=== PATIENT | female | born 1980 | race Caucasian/White ===

== ENCOUNTER 2021-09-15 13:07 | Emergency (ER) | payer OTHER, SELFPAY ==
[2021-09-15 13:14] VITALS: BP 128/89; PULSE 98; RESP 16; TEMP 36.6; O2SAT 100
--- NOTE | 2021-09-15 13:18 | ED.URI ---
HPI - URI/Sore Throat General Chief Complaint: Upper Respiratory Infection Stated Complaint: head lora,headache,ears hurts,cough Source: patient and RN notes reviewed Mode of arrival: ambulatory Limitations: no limitations History of Present Illness HPI Narrative: He is a 41-year-old female patient who ambulated into the [facility]. Patient states that on evening she started feeling bad. On Thursday she had severe nasal congestion, headache, low-grade fever and cough. Patient states that she has used Mucinex, ibuprofen Aleve and [place] cold. Patient had a Covid test at [facility] earlier today. Patient states she had exposure to influenza. MD elicited complaint: fever and nasal congestion Related Data Home Medications Medication Instructions Recorded Confirmed copper [ParaGard T 380A] 1 device INTRAUTERINE ONCE 09/15/21 09/15/21 Allergies Allergy/AdvReac Type Severity Reaction Status Date / Time latex Allergy Unknown Rash Verified 09/15/21 13:27 sulfamethoxazole AdvReac Mild YEAST Verified 08/30/17 15:57 INFECTIONS trimethoprim AdvReac Mild YEAST Verified 08/30/17 15:57 INFECTIONS Review of Systems Review of Systems: CONSTITUTIONAL: + body aches,+ fever, denies chills, or sweats. EYES: Denies visual changes, redness, or discharge. ENT: +rhinorrhea,+ congestion, +sore throat, or otalgia. CARDIOVASCULAR: Denies chest pain, palpitations, or edema. RESPIRATORY: + cough or dyspnea. GASTROINTESTINAL: Denies abdominal pain, nausea, vomiting, or diarrhea. GENITOURINARY: Denies dysuria or hematuria. SKIN: Denies rash, itching, or wounds. MUSCULOSKELETAL: Denies back pain, joint pain, or myalgia. NEUROLOGIC: Denies headache, numbness, tingling, or weakness. PSYCH: Denies depression or anxiety. All systems reviewed & are unremarkable except as noted in HPI and below PMFSH Comments At time of signature, I have reviewed and agree with nursing past medical, surgical, social and family history unless otherwise noted. Please see nursing chart for further information. There is no relevant family history pertinent to the presenting complaint Exam Narrative: GENERAL: Well-appearing, well-nourished, and in no acute distress. HEAD: Normocephalic, atraumatic. EYES: EOMI. No redness or drainage. Conjunctivae normal. ENT: Mucous membranes pink and moist. Nasal membranes erythematous with clear rhinorrhea. Tympanic membranes are dull bilaterally with moderate amount of fluid. Posterior oropharynx is erythemic with moderate amount of clear drainage, no exudate. Uvula midline. NECK: Normal AROM. Supple. left anterior cervical lymphadenopathy. CHEST: No respiratory distress. Clear to auscultation. MUSCULOSKELETAL: No bony tenderness. EXTREMITIES: Normal range of motion. No edema. SKIN: Warm, dry, no rash. Capillary refill normal. Normal skin turgor. NEURO: No focal deficits. Alert and oriented x3. Gait steady. PSYCH: Normal affect. No signs of depression or anxiety. Course Vital Signs Vital signs: Reviewed MDM - URI/Sore Throat MDM Narrative Medical decision making narrative: Patient's rapid Covid test is positive. Differential Diagnosis Differential diagnosis: Likely upper respiratory infection, otitis media, sinusitis, viral infection and other (covid 19) Medical Records Attestation: I reviewed the patient's medical records. Lab Data Attestation: I reviewed the patient's lab results. Critical Care Time Critical Care Time Critical Care Time: No Discharge Plan Discharge Clinical Impression: COVID Patient Disposition: Home, Self-Care Condition: Stable Instructions: Antibiotic Form, COVID-19 (Coronavirus Disease 2019) (ED) Additional Instructions: Increase fluids. COVID-19 DISCHARGE The following recommendations have been made by the CDC and local Health Departments, regarding COVID-19: Those individuals with mild cases of COVID-19 can generally be discontinued from iso
== END 2021-09-15 13:36 | disposition home or self-care (01) ==
PROVIDERS: Emergency Provider Nurse Practitioner Family; PCP Physician Assistant
DX: U07.1 COVID-19 (principal)
CPT/HCPCS: 87426; 87804; 99213; C9803; G0463

== ENCOUNTER 2022-02-11 15:17 | Outpatient (CLI) | payer OTHER, SELFPAY ==
--- NOTE | ~2022-02-11 | XR_ITS ---
EXAMINATION: XR chest 2V EXAM DATE: 02/11/2022 15:38 INDICATION: Pleurodynia,Cough,Rt Chest Heaviness Into Lt X4days TECHNIQUE: Frontal and lateral projections of the chest obtained and reviewed. There is no prior stud y for comparison. FINDINGS: The lungs are clear. There are no pleural effusions. The cardiomediastinal silhouette is within normal limits. There is no pneumothorax suspected. The bones and soft tissues are unremarkab le. IMPRESSION: No acute cardiopulmonary findings. Reviewed, dictated and finalized at location B.
== END 2022-02-11 15:18 | disposition home or self-care (01) ==
LOC: ANHIMG 15:22
PROVIDERS: PCP Physician Assistant; Visit Provider Physician Assistant
DX: R07.81 Pleurodynia (principal)
CPT/HCPCS: 71046

== ENCOUNTER 2022-04-05 08:27 | Emergency (ER) | payer OTHER, SELFPAY ==
[2022-04-05 08:30] VITALS: BP 117/80; PULSE 77; RESP 14; TEMP 36.8; O2SAT 100
--- NOTE | 2022-04-05 08:48 | ED.URI ---
HPI - URI/Sore Throat General Chief Complaint: Upper Respiratory Infection Stated Complaint: Sore Throat Time Seen by Provider: 04/05/22 08:48 Source: patient, RN notes reviewed and old records reviewed Mode of arrival: ambulatory Limitations: no limitations History of Present Illness HPI Narrative: 42-year-old female who presents to [facility] with complaints of fever,chills and sweats, and body aches with thick nasal drainage which is yellow and sore throat with cough and frontal headaches since . 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 Patient states she saw her doctor for just a routine visit few weeks ago and has history of seasonal allergies and has been taking Singulair and Loli for her symptoms along with Flonase nasal spray. Patient reports she has been taking also some Mucinex cold and flu and some Tylenol or ibuprofen for her sore throat symptoms. Patient reports she took a home COVID test which was negative yesterday, is vaccinated and boosted for COVID and had COVID August 2021. MD elicited complaint: cough, sore throat, rhinorrhea and nasal congestion Pertinent past history: seasonal allergies Onset (ago): day(s) Consistency: progressively worsening Severity: moderate Pain scale (0-10): 6 Description of mucous: yellow Able to tolerate fluids by mouth: Yes Exacerbating factors: swallowing Context: sick contacts Treatments prior to arrival: acetaminophen, ibuprofen, cold medicine and other (allergy meds) Related Data Home Medications Medication Instructions Recorded Confirmed copper [ParaGard T 380A] 1 device INTRAUTERINE ONCE 09/15/21 09/15/21 Allergies Allergy/AdvReac Type Severity Reaction Status Date / Time latex Allergy Unknown Rash Verified 04/05/22 08:40 sulfamethoxazole AdvReac Mild YEAST Verified 04/05/22 08:40 INFECTIONS trimethoprim AdvReac Mild YEAST Verified 04/05/22 08:40 INFECTIONS Review of Systems Review of Systems: CONSTITUTIONAL: Positive for fever, chills, or sweats. EYES: Denies visual changes, redness, or discharge. ENT: Positive for rhinorrhea, congestion, sore throat, no otalgia. CARDIOVASCULAR: Denies chest pain, palpitations, or edema. RESPIRATORY: Positive for cough denies dyspnea. GASTROINTESTINAL: Denies abdominal pain, nausea, vomiting, or diarrhea. GENITOURINARY: Denies dysuria or hematuria. SKIN: Denies rash or itching. MUSCULOSKELETAL: Denies back pain, joint pain, some body aches NEUROLOGIC: Positive headache, numbness, or weakness. PSYCHIATRIC: Denies anxiety or depression. All systems reviewed & are unremarkable except as noted in HPI and below PMFSH Past Medical History Medical History (Updated 04/05/22 @ 09:29 by Sharifa Marrero NP) Bronchitis Kidney infection Family History Family History (Updated 04/05/22 @ 09:29 by Sharifa Marrero NP) Father Heart disease Hypertension Mother Hypertension Social History Social History (Updated 04/05/22 @ 09:30 by Sharifa Marrero NP) Smoking status: Never smoker Alcohol intake: current Alcohol use details: social Substance use type: does not use Living arrangements: with family Gender identity (if verbalized by the patient): Female Comments At time of signature, agree with nursing past medical, surgical, social and family history. There is no relevant family history pertinent to the presenting complaint Exam Narrative: GENERAL: Well-appearing, well-nourished, and in no acute distress. HEAD: Normocephalic, atraumatic. EYES: PERRLA and EOMI. ENT: Nares with red membranes yellow tinged rhinorrhea no epistaxis. Mucous membranes moist.TM's normal with good light reflex, throat red with white lesions to tonsils with some tonsil enlargement NECK: Supple no lymphadenopathy CHEST: Clear to auscultation. No respiratory dist
== END 2022-04-05 09:23 | disposition home or self-care (01) ==
PROVIDERS: Emergency Provider Registered Nurse; PCP Physician Assistant
DX: J03.90 Acute tonsillitis, unspecified (principal); J06.9 Acute upper respiratory infection, unspecified; Z86.16 Personal history of COVID-19
CPT/HCPCS: 87081; 87804; 87880; 99213; G0463

== ENCOUNTER 2023-12-13 12:56 | Emergency (ER) | payer OTHER, SELFPAY ==
--- NOTE | ~2023-12-13 | XR_ITS ---
EXAM: XR shoulder LT min 2V, XR elbow LT min 3V, XR humerus LT DATE: 12/13/2023 14:15 (accession [id number]), 12/13/2023 14:16 (accession [id number]), 12/13 14:14 (accession [id number]) HISTORY: fall, generalized ache/stiffness throughout shoulder . COMPARISON: None. FINDINGS: Normal mineralization. No fracture or dislocation. No lytic or blastic lesion. Joint space s are maintained. No erosion or periosteal change. Soft tissues within normal limits. IMPRESSION: No acute osseous finding in the left shoulder, humerus, or elbow. Reviewed, dictated and finalized at location K. IFIED [employer] AND DR[employer] COUNSELOR IMPRESSION: No acute osseous finding in the left shoulder, humerus, or elbow. IMPRESSION: No acute osseous finding in the left shoulder, humerus, or elbow.
--- NOTE | ~2023-12-13 | XR_ITS ---
EXAMINATION: [id number] Exam Date/Time: 12/13/2023 13:50 HAND LOOM WEAVER HISTORY: fall, generalized pain throughout left ribs no cardiac hx Comparison: 02/11/2022. RESULT: Lines, tubes, and devices: None. Lungs and pleura: Clear. Cardiomediastinal silhouette: Stable. Other: No acute osseous or upper abdominal finding. IMPRESSION: No acute cardiopulmonary process. No acute osseous finding in the left ribs. Reviewed, dictated and finalized at location K. LOOM WEAVER
--- NOTE | ~2023-12-13 | CT_ITS ---
EXAMINATION: CT cervical spine wo con DATE: 12/13/2023 14:17 INDICATION: fall, left sided neck pain radiates down left arm TECHNIQUE: Computed tomography (CT) of the cervical spine was performed without intravenous contrast. Automated exposure control and iterative reconstruction technique were employed. The dose-length pro duct was 173.44 mGy-cm. COMPARISON: None. FINDINGS: Vertebral Body Alignment: Intact. Reversed lordosis centered at C4-5. Craniocervical and atlantoaxial alignment: Mild degenerative change. Alignment intact. Osseous structures/fracture: No evidence of a lytic or blastic process in the visualized spine. No e vidence of acute fracture. Cervical soft tissues: The paraspinal soft tissues planes are maintained. Minimal biapical pleural sc arring. Bilateral anterior cervical chain lymphadenopathy. Degenerative changes: No significant degenerative changes. IMPRESSION: No acute fracture or traumatic malalignment in the cervical spine. Cervical lymphadenopathy. Reviewed, dictated and finalized at location K. MANAGER
--- NOTE | ~2023-12-13 | CT_ITS ---
EXAMINATION: CT brain wo con DATE: 12/13/2023 14:15 INDICATION: fall down stairs ARCHIBALD . TECHNIQUE: Computed tomography (CT) of the head was performed without intravenous contrast. The mA wa s adjusted according to patient size. Iterative reconstruction technique was employed. The dose-lengt h product was 605.33 mGy-cm. COMPARISON: None. FINDINGS: No acute intracranial hemorrhage or extra-axial fluid collection. No hydrocephalus, mass, or herniation. No acute ischemic infarct. Unremarkable dural venous sinus attenuation. No acute osseous abnormality. The aerated spaces are clear. IMPRESSION: No acute intracranial process. Reviewed, dictated and finalized at location K. ING ATTENDANT
[2023-12-13 12:56] VITALS: BP 135/85; PULSE 85; RESP 16; TEMP 36.7; O2SAT 99
--- NOTE | 2023-12-13 13:10 | ED.FALL ---
HPI - Fall General Chief Complaint: Fall Stated Complaint: fell down a flight of stairs Time Seen by Provider: 12/13/23 13:09 Source: patient Mode of arrival: ambulatory Limitations: no limitations History of Present Illness HPI Narrative: Patient is a 43-year-old female with a fall down 12 flight steps accidentally prior to arrival. She slipped on the top step caring laundry wearing socks. She reach her left arm out to grab the banister and pulled her left arm. Further she slid all the way down the 12 stairs. She is not definite about a head and neck injury. She does have pain in the head. Specifically, her pain is the left shoulder and left elbow. MD complaint: fall Onset (ago): minute(s) (30) Fall from: standing Fall witnessed: no Place fall occurred: home Loss of consciousness: none Prolonged down time: no Symptoms prior to fall: none Context: tripped/slipped Location of injury: other ( Possibly her head, left shoulder and left elbow; left ribs) Location of injury - extremities: Left: shoulder, arm and elbow Severity: moderate Severity scale (1-10): 5 Quality: sharp Associated symptoms (after fall): headache Related Data Home Medications Medication Instructions Recorded Confirmed doxycycline hyclate 100 mg capsule 100 mg PO BID 12/13/23 12/13/23 neomycin 3.5 mg/g-polymyxin B 1 applic ophthalmic (eye) BID 12/13/23 12/13/23 10,000 unit/g-dexameth 0.1 % eye oint Allergies Allergy/AdvReac Type Severity Reaction Status Date / Time latex Allergy Unknown Rash Verified 12/13/23 13:22 sulfamethoxazole AdvReac Mild YEAST Verified 12/13/23 13:22 INFECTIONS trimethoprim AdvReac Mild YEAST Verified 12/13/23 13:22 INFECTIONS Review of Systems Review of Systems: All systems reviewed & are unremarkable except as noted in HPI and below Constitutional: Constitutional: Reports no additional constitutional complaints Eyes: Eyes: Reports no additional eye complaints ENT: Reports system reviewed and no additional complaints, except as documented Cardiovascular: Cardiovascular: Reports no additional cardiovascular complaints Respiratory: Respiratory: Reports no additional respiratory complaints Gastrointestinal: Gastrointestinal: Reports no additional gastrointestinal complaints Genitourinary: Genitourinary: Reports no additional female genitourinary complaints Musculoskeletal: Musculoskeletal: Reports no additional musculoskeletal complaints Integumentary/Breasts: Skin/Breast: Reports system reviewed and no additional complaints, except as docu Neurologic: Reports system reviewed and no additional complaints, except as documented Psychiatric: Psychiatric: Reports no additional psychiatric complaints Endocrine: Endocrine: Reports no additional endocrine complaints Hematologic/Lymphatic: Hematologic/Lymphatic: Reports no additional hematologic/lymphatic complaints Allergic/Immunologic: Allergic/Immunologic: Reports no additional allergic/immunologic complaints PMFSH Past Medical History Medical History Bronchitis Kidney infection Family History Family History Father Heart disease Hypertension Mother Hypertension Social History Social History Smoking status: Never smoker Alcohol intake: current Alcohol use details: social Substance use type: does not use Living arrangements: with family Gender identity (if verbalized by the patient): Female Exam Const: General: healthy appearing Nutritional Appearance: well nourished Orientation/consciousness: patient oriented x3 HENMT: Head: normal to inspection Ears: external ears normal Face/Nose/Sinus: Normal external nose present Face and sinus: normal facial exam Eyes: Conjunctivae: conjunctivae normal Pupils: Equal, round and reactive pupils present EOM: E
[2023-12-13] MEDS: ORPHENADRINE CITRATE 30 MG/ML 2 ML VIAL 60 MG IM (14:14)
[2023-12-13 15:00] VITALS: BP 119/69; PULSE 78; RESP 18; TEMP 36.2; O2SAT 99
== END 2023-12-13 15:03 | disposition home or self-care (01) ==
PROVIDERS: Emergency Provider Emergency Medicine; PCP Physician Assistant
DX: S40.012A Contusion of left shoulder, initial encounter (principal); W10.9XXA Fall (on) (from) unspecified stairs and steps, initial encounter
CPT/HCPCS: 70450; 71101; 72125; 73030; 73060; 73080; 96372; 99284; A4565; J2360; L0150

== ENCOUNTER 2025-04-21 08:29 | Outpatient (CLI) | payer OTHER, SELFPAY ==
--- NOTE | ~2025-04-21 | MM_ITS ---
EXAMINATION: MM screening [facility] BI w leonel HISTORY: Screening TECHNIQUE: Craniocaudal and mediolateral oblique 3-D tomosynthesis images were obtained and synthetic 2-D images were generated. CAD analysis was submitted and interpreted. COMPARISON: Baseline. BREAST PARENCHYMAL COMPOSITION: The breasts are heterogeneously dense, which may obscure small masses . FINDINGS: There is no evidence of suspicious mass, calcification, or architectural distortion to sugg est malignancy in either breast. IMPRESSION: 1. No mammographic evidence of malignancy. 2. Recommend routine screening mammography in one year. BI-RADS Category 1: Negative Reviewed, dictated and finalized at location B.
--- NOTE | ~2025-04-21 | XR_ITS ---
XR thoracic spine 2V 04/21/2025 09:11 Indication: Radiculopathy Procedure: 3 views thoracic spine Comparison: No prior studies for comparison. Findings: Vertebral body heights are maintained. There is mild levocurvature of the thoracic spine ce ntered at T5-6. No paraspinal soft tissue abnormality. Pedicles intact. The lower thoracic spine is i ncompletely visualized on the lateral view. Impression: 1: Mild levocurvature of the thoracic spine. Reviewed, dictated and finalized at location A. Impression: 1: Mild levocurvature of the thoracic spine.
--- NOTE | ~2025-04-21 | XR_ITS ---
[id number] 04/21/2025 09:11 Indication: Radiculopathy Procedure: 3 views cervical spine Comparison: 10/30/2009 Findings: Straightening of cervical lordosis. Vertebral body and disc heights are preserved. No fract ure, subluxation or dislocation. Odontoid process is normal. Lateral masses normally aligned. No prev ertebral soft tissue swelling. Impression: 1: No significant abnormality of the cervical spine. Reviewed, dictated and finalized at location A. Impression: 1: No significant abnormality of the cervical spine.
--- OUTSIDE RECORDS SUMMARY | 2025-04-21 08:37 | XMS_ITS | Data Portability ---
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 Plan of Treatment Reminders Order Date Submit Date Provider Last Modified By Organization Details Last Modified Time Details Appointments None recorde d. Lab NEDA (antinu clear antibod ies) screen, serum 2024 025 [facility], [address], [place], [address], 5 15:33:25 lipid panel, serum 2024 025 [facility], [address], [place], [address], 5 15:30:34 vitamin B12 + folate, serum or blood 2024 025 SONYA [facility], [address], [place], [address], 5 15:36:20 iron + TIBC + ferriti n, serum 2024 025 [email or web address] [facility], [address], [place], [address], 5 15:30:02 vitamin D, 25-hydr oxy, total, serum 2024 025 [employer], [address], [place], [address], 5 15:33:05 TSH + free T4, serum 2024 [facility], [address], [place], [address], 5 15:30:13 CBC w/ auto diff 2024 [facility] [employer], [address], [place], [address], 5 15:31:47 CMP, serum or plasma 2024 [facility], [address], [place], [address], 5 15:30:52 cortiso l, am, serum 2024 [facility], [address], [place], [address], 5 15:32:25 unliste d lab - thyroid peroxid ase and thyrogl obulin antibod ies 2024 [facility], [address], [place], [address], 5 15:31:27 testost erone, total, serum 2024 [facility], [address], [place], [address], 5 15:32:39 T3, free, serum or plasma 2024 025 [facility], [address], [place], [address], 5 15:31:15 HbA1c (hemogl obin A1c), blood 2024 025 antoine [facility], [address], [place], [address], 5 15:31:04 Referral audiolo gist referra l [id number] [facility], [address], [address], [place], [address], 5 16:47:32 Procedures None recorde d. Surgeries None recorde d. Imaging MAMMO, screeni ng, digital , bilater al [address] ([address]), [address] [place], [address], 5 12:26:16 XR, cervica l spine, 2 or 3 view [address] (Imaging), [address] [place], [address], 5 12:26:16 XR, thoraci c spine, 2 view [address] (Im[address]), [address] [place], [address], 5 12:26:16 Medication Orders montelu kast 10 mg tablet 2024 025 [id number], [address], [place], [place], [id number], 09:02:03 Patient TargetsNo targets recorded. Patient InstructionsNo instructions recorded. 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, [place], [address], [place] [facility] 22:31:21 Frequent headache 351422412 Active 2024 DUANE Rosas Attn: Accountin g,[address] [place], [address], [place] [facility] 22:31:39 Fatigue 54722341 Active 2024 DUANE Rosas Attn: Accountin g,[address] [place], [address], [place] [facility] 22:31:43 Xerostomia 87073693 Active 2024 DUANE Rosas Attn: Accountin g,[address] [place], [address], [place] [facility] 22:32:02 Xeroderma 02620413 Active 2024 DUANE Rosas Attn: Accountin g,[address] [place], [address], [place] [facility] 22:32:03 Decreased hearing 659691939 Active 2024 DUANE Rosas Attn: Accountin g,[address] [place], [address], [place] [facility] 22:32:28 Seasonal allergy 299988587 Active 2024 DUANE Rosas Attn: Gray g,[address] [place], [address], [facility] 5 22:32:36 Problem Notes None recorded. Medical Equipment None Reported. Medications Name Sig Start Date Stop Date Status Note LastModified by Organization Details LastModified Time Lidocaine Viscous 2 % mucosal solution GARGLE AND SPIT 15 ML BY MOUTH EVERY 6 HOURS NEEDED FOR SORE THROAT active Not Available Not Available No t Available fluconazole 150 mg tablet TAKE 1 TABLET BY MOUTH 1 TIME EVERY 72 HOURS NEEDED active Not Available Not Available No t Available benzonatate 200 mg capsule TAKE 1 CAPSULE BY MOUTH THREE TIMES DAILY active Not Available Not Available No t Available montelukast 10 mg tablet TAKE 1 TABLET BY MOUTH EVERY DAY active Not Available Not Available No t Available amoxicillin 875 mg-potassium clavulanate 125 mg tablet TAKE 1 TABLET BY MOUTH EVERY 12 HOURS WITH FOOD FOR 10 DAYS active Not Available Not Available No t Available Vitals Date Recorded Systolic blood pressure Diastolic blood pressure Provider Name and Address Organization Details Last Updated DateTime 03/13/2025 110 mm[Hg] 80 mm[Hg] DUANE Rosas Attn: Accounting,[address], [place], [address], [facility] 03/13/2025 16:32:39 Date Recorded Body weight Respiratory rate Body mass index (BMI) Body height Oxygen saturation Oxygen saturation in Arterial blood by Pulse oximetry Heart rate Systolic blood pressure Diastolic blood pressure Provider Name and Address Organization Details Last Updated DateTime 5 [address]443.6 7 g 18 /min 23.7 kg/m2 168.28 cm 98 % 98 % 83 /min 122 mm[Hg] 80 mm[Hg] Rebekah Beck MA [facility] 5 16:07:47 Social History Question Answer Notes LastModified by Organizat ion Details LastModified Time Tobacco Smoking Status Never Smoker Rebekah Beck MA null, [facility] 03/13/2025 16:38:15 Do You Have An Advance Directive? No Information not available 03/13/2025 Are You Blind Or Do You Have Difficulty Seeing? Yes Glasses Information not available 03/13/2025 What Is Your Level Of Caffeine Consumption? Moderate Coffee Information not available 03/13/2025 In The 14 Days Before Symptom Onset, Have You Had Close Contact With A Laboratory-confir med COVID-19 While That Case Was Ill? No Information not available 03/13/2025 In The 14 Days Before Symptom Onset, Have You Had Close Contact With A Person Who Is Under Investigation For COVID-19 While That Person Was Ill? No Information not available 03/13/2025 Have You Been To An Area Known To Be High Risk For COVID-19? No Information not available 03/13/2025 Are You Deaf Or Do You Have Serious Difficulty Hearing? No Information not available 03/13/2025 What Type Of Diet Are You Following? GLUTENFREE Information not available 03/13/2025 What Is The Highest Grade Or Level Of School You Have Completed Or The Highest Degree You Have Received? LD81072-5 Information not available 03/13/2025 Are There Any Guns Present In Your Home? No Information not available 03/13/2025 What Was The Date Of Your Most Recent Tobacco Screening? 03/13/2025 Information not available 03/13/2025 What Is Your Relationship Status? Information not available 03/13/2025 Do You Use Your Seat Belt Or Car Seat Routinely? Yes Information not available 03/13/2025 Do You Have Smoke And Carbon Monoxide Detectors In Your Home? Yes Information not available 03/13/2025 Do You Use Sunscreen Routinely? Yes Information not available 03/13/2025 Has Tobacco Cessation Counseling Been Provided? No Information not available 03/13/2025 Sex: Female Functional Status Question Answer Note LastModified by Organizat ion Details LastModified Time Do you use any illicit or recreational drugs? No Information not available 03/13/2025 Do you or have you ever used any other forms of tobacco or nicotine? No Information not available 03/13/2025 What is your level of alcohol consumption? Occasional Information not available 03/13/2025 Are you currently employed? Yes Information not available 03/13/2025 Are you able to care for yourself? Yes Information n ot available 03/13/2025 What is your occupation? Teacher Information not available 03/13/2025 What is your exercise level? Occasional Information not available 03/13/2025 Mental Status None recorded. Family History Nothing Reported. Medical History Condition Response Coronary Artery Disease N Other N Atrial Fibrillation N High Blood Pressure N Kidney or Bladder Problems N Thyroid Problems N GI Problems N Depression N COPD N Blood Clots N Have you had a mammogram in the last yea r? N Skin Problems N Anemia Y Heart Attack (TN) N Anxiety Disorder N Diabetes N Muscle, Joint, or Bone Problems N Seizures/Epilepsy N Have you had a colonoscopy in the last 1 0 years? N Acid Reflux (GERD) N Cancer N Stroke N Asthma N Allergies N Have you had a PSA blood test in the las t year? N High Cholesterol N Hepatitis N Liver Disease N Headaches N Heart Failure N Osteoporosis N Gynecological History Statement/Question Response Menses Monthly Y Flow Moderate Date of LMP 02/10/2025 LMP Approximate Obstetrics History GPAL:G 3 P 3 0 0 3 Type Value Multiple Births 0 Full Term 3 Induced 0 Spontaneous 0 Premature 0 Living 3 Total 3 Immunizations Vaccine Type Date Status Note Provider Nam e and Address Organization Details Recorded Time COVID-19, mRNA, LNP-S, PF, 100 mcg/0.5mL dose or 50 mcg/0.25mL dose 1 completed ARNOLDO Goetz, [place] - [facility] 03/13/2025 16:04:07 Tdap 1 completed ARNOLDO Goetz, [place] [facility] 03/13/2025 16:04:07 Influenza, split virus, trivalent, preservative 4 completed ARNOLDO [place] [facility] 03/13/2025 16:04:07 Hep B, adolescent or pediatric 1 completed ARNOLDO Goetz, [place] [facility] 03/13/2025 16:04:07 Past Encounters Encounter ID Performer Location Encounter Start Date Encounter Closed Date Diagnosis/Indication Diagnosis SNOMED-CT Code Diagnosis ICD10 Code Diagnosis Note [id number] Fredis Negro MD [facility] - Danny Lyman [address] [place] [address] 03/13/2025 15:48:28 03/13/2025 16:47:31 Body mass index 20-24 - normal 160733480 Z68.23 BMI 23.7 Cervical radiculopathy 10737886 M54.12 For reported radiation of pain from the neck into the upper arms we will check baseline cervical spine films as well as thoracic spine to evaluate those upper levels of the T-spine that may have some bulging disc. Xeroderma 29898058 L85.3 Await NEDA panel results ordered for dry mouth as well Xerostomia 94029108 R68. 2 Check NEDA multiplex with reflex panel Weight increased 8318967 00 R63.5 Patient reports weight gain though her BMI maintains normal level Frequent headache 873174 003 R51.9 frontal or occipital location. This certainly could be related to cervical spine degenerati ve disc disease we will await results from x-rays Fatigue 56588024 R53.82 full labs panel to get fatigue evaluated. may need home sleep study if this doesn't improve. Cholesterol screening 27 4859621 Z13.220 Fasting lipid panel is due Diabetes m ellitus screening 253442726 Z13.1 A1c screening due Decreased hearing 951757 001 H91.93 For decreased hearing in both ears reported we will refer her for a formal audiology evaluation Screening mammography 24 593561 Z12.31 Patient is due for bilateral mammogram Seasonal allergy 8250161 04 J30.2 Refill given on Singulair 10 mg daily for seasonal allergies Adult heal th examination 500528696 Z00.00 Annual wellness exam completed Health Concerns Section Related Observation LastModified by Organization Detai ls LastModified Time None Recorded Concern Status LastModified by Organization Details LastModified Time None Recorded Advance Directives Directive N: Payers Encounter Date Sequence Insurance Name Policy Number Policy Bronson Covered Member ID Bronson Member ID Guarantor Name 03/13/2025 1 [facility] [id number] Rick Kaye [id number] Candelaria Kaye Notes Date Note Type Note Provider Name and Address Organization Details Recorded Time 03/13/2025 text/html Patient is here to reestablish and have her annual wellness exam. As far as history of present illness she does have some chronic neck pain that does radiate into the upper extremities, she also has frequent headaches and she has persistent fatigue this has been present for years. In addition she does have some dry skin and dry mouth and she feels that she has gained some weight. Lastly she would like to have a referral to have a hearing evaluation. Also needs a refill on her Singulair DUANE Rosas Attn: Accounting,[address] [place], [address], [facility] - [facility] 03/26/2025 22:32:57 OBGyn Episode No OBEpisode recorded.
--- OUTSIDE RECORDS SUMMARY | 2025-04-21 08:37 | XMS_ITS | Data Portability ---
Author Organization [place] - [facility] [employer], Main Office Address [address] [place] [address] Assessment No assessment recorded. Plan of Treatment Reminders Order Date Submit Date Provider Last Modified By Organization Details Last Modified Time Details Appointments None recorded. Lab lipid panel, serum 2022 023 [facility], [address], [place], [address], 3 08:02:24 HbA1c (hemoglobi n A1c), blood 2022 023 [facility], [address], [place], [address], 3 08:02:25 iron + TIBC + ferritin, serum 2022 023 [facility], [address], [place], [address], 3 08:02:22 CBC w/ auto diff 2022 023 [facility], [address], [place], [address], 3 08:02:26 TSH + free T4, serum 2022 023 [facility], [address], [place], [address], 3 08:02:23 CMP, serum or plasma 2022 023 [facility], [address], [place], [address], 3 08:02:24 Referral None recorded. Procedures None recorded. Surgeries None recorded. Imaging MAMMO, screening, bilateral 2022 023 [email or web address] 4 Not available 4 14:45:51 Medication Orders None recorded. Patient TargetsNo targets recorded. Patient InstructionsNo instructions recorded. Reason for Referral None Reported. Results Created Date Observation Date Name Description Value Unit Range Abnormal Flag Note LastModifiedBy Organization Detail LastModifiedTime 02/13/2002/13/2021 thyro perox idase Ab, serum thyroid peroxidase (tpo) Ab <9 IU/mL 0-34 Not Available [facility] ([facility]) [address] [place], [address], 02/15/2021 20:08:09 02/13/20 21 02/13/2021 thyro perox idase Ab, serum thyroglobuli n antibody <1.0 IU/mL 0.0-0. 9 Thyro globu courtney Antib afia measu red by Beckm an Coult er Metho dolog y Not Available [facility] ([facility]) [address] [facility], [place], [address], 02/15/2021 20:08:09 02/13/20 21 02/13/2021 vitam in D, 25-hy droxy , total , serum vitamin D, 25-hydroxy 39.6 NG/mL 30.0-1 00.0 Vitam in D defic iency has been defin ed by the Insti tute of Medic ine and an Endoc rine Socie ty pract ice guide line as a level of serum 25-OH vitam in D less than 20 ng/mL (1,2) . The Endoc rine Socie ty went on to furth er defin e vitam in D insuf ficie ncy as a level betwe en 21 and 29 ng/mL (2). 1. IOM (Inst itute of Medic ine). 2010. Dieta ry refer ence intak es for calci um and D. Franki chapman [place]: [facility] . 2. Analia zuniga MF, Eden olivas [place], Emiliana off-F baldo i ARCHIBALD, et al. Evalu ation , treat ment, and preve ntion of vitam in D defic iency : an Endoc rine Socie ty clini alfa pract ice guide line. JCEM. 2010; 96(7) :1911 -30. Not Available [facility] ([facility]) [address] [facility], [place], [address], 02/15/2021 20:08:09 02/13/20 21 02/13/2021 vitam in B12 + folat e, serum or blood vitamin B12 810 pg/mL 232-12 45 Not Available [facility] ([facility]) [address] [facility], [place], [address], 02/15/2021 20:08:08 02/13/20 21 02/13/2021 vitam in B12 + folat e, serum or blood folate (folic acid), serum 14.8 NG/mL >3.0 A serum folat e chani ntrat ion of less than 3.1 ng/mL is consi dered to repre sent clini alfa defic iency . Not Available [facility] ([facility]) [address] [facility], [place], [address], 02/15/2021 20:08:08 02/13/20 21 02/15/2021 HbA1c (hemo globi n A1c), blood Hb A1C diabetic assessment 5.3 %Hb Note: A refle x test was order ed on this speci men. If A1c resul ts are betwe en a value of 6.0 to 8.0 (incl uding 6.0 and 8.0), Glyco Kyle testi ng is perfo rmed. Glyco Kyle refle cts post prand ial gluco se spike s from the past 2 weeks , where as A1c refle cts avera ge glyce haleigh contr ol over the past 3 month s. Refer ence Range : Hanh l: <5.7 Incre ased risk for diabe sheldon: 5.7 - 6.4 Ongoi ng Hyper glyce yaneth: >6.4 Glyce haleigh contr ol for adult s with diabe sheldon: <7.0 (ADA) Not Available [facility] [address], [place], [address], 02/15/2021 20:08:08 02/13/20 21 02/15/2021 HbA1c (hemo globi n A1c), blood estimated average glucose 105 mg/dL Not Available [facility] [address], [place], [address], 02/15/2021 20:08:08 02/13/20 21 02/15/2021 HbA1c (hemo globi n A1c), blood glycomark(R) (1,5 Ag) tnp ug/mL Testi ng Not Indic ated Refle x not perfo rmed Glyco Kyle( TM) is inten ded for use with manag ing glyce haleigh contr ol in diabe tic patie nts. A low resul t corre spond s to high gluco se peaks . 1, 5-AG blood level s can be affec yesenia by clini alfa condi tions or medic ation s. Pleas e refer to the direc tory of servi silvana or labco rp websi te test menu for detai led list of limit ation s. Not Available [facility] [address], [place], [address], 02/15/2021 20:08:08 02/13/20 21 02/13/2021 lipid panel , serum HDL cholesterol 64 mg/dL >39 Not Available [facility] ([facility]) [address] [facility], [place], [address], 02/15/2021 20:08:08 02/13/20 21 02/13/2021 lipid panel , serum LDL/HDL ratio 1.7 ratio 0.0-3. 2 LDL/H DL Ratio Men Women 1/2 Avg.R isk 1.0 1.5 Avg.R isk 3.6 3.2 2X Avg.R isk 6.2 5.0 3X Avg.R isk 8.0 6.1 Not Available [facility] ([facility]) [address] [place], [address], 02/15/2021 20:08:08 02/13/20 21 02/13/2021 lipid panel , serum non-HDL cholesterol 121 mg/dL 0-129 Not Available [facility] ([facility]) [address] [place], [address], 02/15/2021 20:08:08 02/13/20 21 02/13/2021 lipid panel , serum triglyceride s 61 mg/dL 0-149 Not Available [facility] ([facility]) [address] [place], [address], 02/15/2021 20:08:08 02/13/20 21 02/13/2021 lipid panel , serum LDL chol calc ([facility]) 109 mg/dL 0-99 above high normal Not Available [facility] ([facility]) [address] [place], [address], 02/15/2021 20:08:08 02/13/20 21 02/13/2021 lipid panel , serum comment: junior designer Not Available [facility] ([facility]) [address] [place], [address], 02/15/2021 20:08:08 02/13/20 21 02/14/2021 lipid panel , serum LDL-P 990 nmol/ L <1000 Low < 1000 Moder ate 1000 - 1299 Borde rline -High 1300 - 1599 High 1600 - 2000 Very High > 2000 Not Available [facility] ([facility]) [address] [place], [address], 02/15/2021 20:08:08 02/13/20 21 02/14/2021 lipid panel , serum HDL-P (total) 33.4 umol/ L >=30.5 Not Available [facility] ([facility]) [address] [facility], [place], [address], 02/15/2021 20:08:08 02/13/20 21 02/14/2021 lipid panel , serum small LDL-P 165 nmol/ L <=527 Not Available [facility] ([facility]) [address] [facility], [place], [address], 02/15/2021 20:08:08 02/13/20 21 02/14/2021 lipid panel , serum LDL size 21.9 nm >20.5 ----- ----- ----- ----- ----- ----- ----- ----- ----- ----- ----- --- INTER PRETA TIVE INFOR BALJINDER N PARTI NITHIN CHANI NTRAT ION AND SIZE <--Lo wer CVD Risk Highe r CVD Risk- -> LDL AND HDL PARTI CLES Perce ntile in Refer ence Popul ation HDL-P (tota l) High 75th 50th 25th Low >34.9 34.9 30.5 26.7 <26.7 Small LDL-P Low 25th 50th 75th High <117 117 527 839 >839 LDL Size <-Lar ge (Radha rafaela A)-> <-Sma ll (Radha rafaela B)-> 23.0 20.6 20.5 19.0 ----- ----- ----- ----- ----- ----- ----- ----- ----- ----- ----- --- Small LDL-P and LDL Size are assoc iated with CVD risk, but not after LDL-P is taken into accou nt. Not Available [facility] ([facility]) [address] [facility], [place], [address], 02/15/2021 20:08:08 02/13/20 21 02/14/2021 lipid panel , serum LP-IR score <25 <=45 INSUL IN RESIS TANCE MARKE R <--In sulin Sensi tive Insul in Resis tant- -> Perce ntile in Refer ence Popul ation Insul in Resis tance Score LP-IR Score Low 25th 50th 75th High <27 27 45 63 >63 LP-IR Score is inacc urate if patie nt is non-f astin g. The LP-IR score is a labor atory devel oped index that has been assoc iated with insul in resis tance and diabe sheldon risk and shoul d be used as one compo nent of a physi yudi' s clini alfa asses sment . Not Available [facility] ([facility]) [address] [place], [address], 02/15/2021 20:08:08 02/13/20 21 02/13/2021 CMP, serum or plasm a glucose 78 mg/dL 65-99 Not Available [facility] ([facility]) [address] [place], [address], 02/15/2021 20:08:07 02/13/20 21 02/13/2021 CMP, serum or plasm a BUN 10 mg/dL 6-20 Not Available [facility] ([facility]) [address] [place], [address], 02/15/2021 20:08:07 02/13/20 21 02/13/2021 CMP, serum or plasm a creatinine 0.82 mg/dL 0.57-1 .00 Not Available [facility] ([facility]) [address] [place], [address], 02/15/2021 20:08:07 02/13/20 21 02/13/2021 CMP, serum or plasm a eGFR if nonafricn AM 91 mL/mi n/1.7 3 >59 Not Available [facility] ([facility]) [address] [place], [address], 02/15/2021 20:08:07 02/13/20 21 02/13/2021 CMP, serum or plasm a eGFR if africn AM 105 mL/mi n/1.7 3 >59 Not Available [facility] ([facility]) [address] [place], [address], 02/15/2021 20:08:07 02/13/20 21 02/13/2021 CMP, serum or plasm a sodium 139 mmol/ L 134-14 4 Not Available [facility] ([facility]) [address] [place], [address], 02/15/2021 20:08:07 02/13/20 21 02/13/2021 CMP, serum or plasm a potassium 4.2 mmol/ L 3.5-5. 2 Not Available [facility] ([facility]) [address] [place], [address], 02/15/2021 20:08:07 02/13/20 21 02/13/2021 CMP, serum or plasm a chloride 104 mmol/ L 96-106 Not Available [facility] ([facility]) [address] [place], [address], 02/15/2021 20:08:07 02/13/20 21 02/13/2021 CMP, serum or plasm a carbon dioxide, total 20 mmol/ L 20-29 Not Available [facility] ([facility]) [address] [place], [address], 02/15/2021 20:08:07 02/13/20 21 02/13/2021 CMP, serum or plasm a calcium 9.2 mg/dL 8.7-10 .2 Not Available [facility] ([facility]) [address] [place], [address], 02/15/2021 20:08:07 02/13/20 21 02/13/2021 CMP, serum or plasm a phosphorus 3.7 mg/dL 3.0-4. 3 Not Available [facility] ([facility]) [address] [facility] [place], [address], 02/15/2021 20:08:07 02/13/20 21 02/13/2021 CMP, serum or plasm a protein, total 7.4 g/dL 6.0-8. 5 Not Available [facility] ([facility]) [address] [facility] [place], [address], 02/15/2021 20:08:07 02/13/20 21 02/13/2021 CMP, serum or plasm a albumin 4.6 g/dL 3.8-4. 8 Not Available [facility] ([facility]) [address] [facility] [place], [address], 02/15/2021 20:08:07 02/13/20 21 02/13/2021 CMP, serum or plasm a bilirubin, total 0.8 mg/dL 0.0-1. 2 Not Available [facility] ([facility]) [address] [place], [address], 02/15/2021 20:08:07 02/13/20 21 02/13/2021 CMP, serum or plasm a alkaline phosphatase 54 IU/L 39-117 Not Available [facility] ([facility]) [address] [place], [address], 02/15/2021 20:08:07 02/13/20 21 02/13/2021 CMP, serum or plasm a LDH 178 IU/L 119-22 6 Not Available [facility] ([facility]) [address] [place], [address], 02/15/2021 20:08:07 02/13/20 21 02/13/2021 CMP, serum or plasm a AST (SGOT) 18 IU/L 0-40 Not Available [facility] ([facility]) [address] [place], [address], 02/15/2021 20:08:07 02/13/20 21 02/13/2021 CMP, serum or plasm a ALT (SGPT) 14 IU/L 0-32 Not Available [facility] ([facility]) [address] [place], [address], 02/15/2021 20:08:07 02/13/20 21 02/13/2021 CMP, serum or plasm a GGT 9 IU/L 0-60 Not Available [facility] ([facility]) [address] [place], [address], 02/15/2021 20:08:07 02/13/20 21 02/13/2021 CMP, serum or plasm a cholesterol, total 185 mg/dL 100-19 9 Not Available [facility] ([facility]) [address] [facility], [place], [address], 02/15/2021 20:08:07 02/13/20 21 02/13/2021 CBC w/ auto diff WBC 5.4 x10e3 /uL 3.4-10 .8 Not Available [facility] ([facility]) [address] [place], [address], 02/15/2021 20:08:07 02/13/20 21 02/13/2021 CBC w/ auto diff RBC 3.95 x10e6 /uL 3.77-5 .28 Not Available [facility] ([facility]) [address] [place], [address], 02/15/2021 20:08:07 02/13/20 21 02/13/2021 CBC w/ auto diff hemoglobin 10.9 g/dL 11.1-1 5.9 below low normal Not Available [facility] ([facility]) [address] [place], [address], 02/15/2021 20:08:07 02/13/20 21 02/13/2021 CBC w/ auto diff hematocrit 33.9 % 34.0-4 6.6 below low normal Not Available [facility] ([facility]) [address] [facility], [place], [address], 02/15/2021 20:08:07 02/13/20 21 02/13/2021 CBC w/ auto diff MCV 86 fL 79-97 Not Available [facility] ([facility]) [address] [facility], [place], [address], 02/15/2021 20:08:07 02/13/20 21 02/13/2021 CBC w/ auto diff MCH 27.6 pg 26.6-3 3.0 Not Available [facility] ([facility]) [address] [facility], [place], [address], 02/15/2021 20:08:07 02/13/20 21 02/13/2021 CBC w/ auto diff MCHC 32.2 g/dL 31.5-3 5.7 Not Available [facility] ([facility]) [address] [facility], [place], [address], 02/15/2021 20:08:07 02/13/20 21 02/13/2021 CBC w/ auto diff RDW 12.8 % 11.7-1 5.4 Not Available [facility] ([facility]) [address] [facility], [place], [address], 02/15/2021 20:08:07 02/13/20 21 02/13/2021 CBC w/ auto diff platelets 346 x10e3 /uL 150-45 0 Not Available [facility] ([facility]) [address] [facility], [place], [address], 02/15/2021 20:08:07 02/13/20 21 02/13/2021 CBC w/ auto diff neutrophils 57 % not estab. Not Available [facility] ([facility]) [address] [facility], [place], [address], 02/15/2021 20:08:07 02/13/20 21 02/13/2021 CBC w/ auto diff lymphs 33 % not estab. Not Available [facility] ([facility]) [address] [facility], [place], [address], 02/15/2021 20:08:07 02/13/20 21 02/13/2021 CBC w/ auto diff monocytes 8 % not estab. Not Available [facility] ([facility]) [address] [facility], [place], [address], 02/15/2021 20:08:07 02/13/20 21 02/13/2021 CBC w/ auto diff eos 1 % not estab. Not Available [facility] ([facility]) [address] [facility], [place], [address], 02/15/2021 20:08:07 02/13/20 21 02/13/2021 CBC w/ auto diff basos 1 % not estab. Not Available [facility] ([facility]) [address] [facility], [place], [address], 02/15/2021 20:08:07 02/13/20 21 02/13/2021 CBC w/ auto diff immature cells junior designer Not Available [facility] ([facility]) [address] [facility], [place], [address], 02/15/2021 20:08:07 02/13/20 21 02/13/2021 CBC w/ auto diff neutrophils (absolute) 3.1 x10e3 /uL 1.4-7. 0 Not Available [facility] ([facility]) [address] [facility], [place], [address], 02/15/2021 20:08:07 02/13/20 21 02/13/2021 CBC w/ auto diff lymphs (absolute) 1.8 x10e3 /uL 0.7-3. 1 Not Available [facility] ([facility]) [address] [facility], [place], [address], 02/15/2021 20:08:07 02/13/20 21 02/13/2021 CBC w/ auto diff monocytes(ab solute) 0.4 x10e3 /uL 0.1-0. 9 Not Available [facility] ([facility]) [address] [facility], [place], [address], 02/15/2021 20:08:07 02/13/20 21 02/13/2021 CBC w/ auto diff eos (absolute) 0.0 x10e3 /uL 0.0-0. 4 Not Available [facility] ([facility]) [address] [facility], [place], [address], 02/15/2021 20:08:07 02/13/20 21 02/13/2021 CBC w/ auto diff baso (absolute) 0.0 x10e3 /uL 0.0-0. 2 Not Available [facility] ([facility]) [address] [place], [address], 02/15/2021 20:08:07 02/13/20 21 02/13/2021 CBC w/ auto diff immature granulocytes 0 % not estab. Not Available [facility] ([facility]) [address] [place], [address], 02/15/2021 20:08:07 02/13/20 21 02/13/2021 CBC w/ auto diff immature grans (abs) 0.0 x10e3 /uL 0.0-0. 1 Not Available [facility] ([facility]) [address] [place], [address], 02/15/2021 20:08:07 02/13/20 21 02/13/2021 CBC w/ auto diff NRBC junior designer Not Available [facility] ([facility]) [address] [place], [address], 02/15/2021 20:08:07 02/13/20 21 02/13/2021 CBC w/ auto diff hematology comments: junior designer Not Available [facility] ([facility]) [address] [place], [address], 02/15/2021 20:08:07 02/13/20 21 02/13/2021 TSH + free T4, serum TSH 1.930 uIU/m L 0.450- 4.500 Not Available [facility] ([facility]) [address] [place], [address], 02/15/2021 20:08:06 02/13/20 21 02/13/2021 TSH + free T4, serum T4,free(dire ct) 1.13 NG/dL 0.82-1 .77 Not Available [facility] ([facility]) [address] [place], [address], 02/15/2021 20:08:06 02/13/20 21 02/13/2021 iron + TIBC + chao tin, serum iron bind.cap.(TI BC) 393 ug/dL 250-45 0 Not Available [facility] ([facility]) [address] [place], [address], 02/15/2021 20:08:06 02/13/20 21 02/13/2021 iron + TIBC + chao tin, serum UIBC 330 ug/dL 131-42 5 Not Available [facility] ([facility]) [address] [place], [address], 02/15/2021 20:08:06 02/13/20 21 02/13/2021 iron + TIBC + chao tin, serum iron 63 ug/dL 27-159 Not Available [facility] ([facility]) [address] [place], [address], 02/15/2021 20:08:06 02/13/20 21 02/13/2021 iron + TIBC + chao tin, serum iron saturation 16 % 15-55 Not Available [facility] ([facility]) [address] [place], [address], 02/15/2021 20:08:06 02/13/20 21 02/13/2021 iron + TIBC + chao tin, serum ferritin, serum 7 NG/mL 15-150 below low normal Not Available [facility] ([facility]) [address] [facility], [place], [address], 02/15/2021 20:08:06 04/07/20 22 04/08/2022 CBC (INCL UDES DIFF/ PLT) white blood cell count 6.4 thous and/u L 3.8-10 .8 normal Not Available [address], [address], 04/08/2022 07:02:51 04/07/20 22 04/08/2022 CBC (INCL UDES DIFF/ PLT) red blood cell count 4.26 clarice on/uL 3.80-5 .10 normal Not Available [address], [address], 04/08/2022 07:02:51 04/07/20 22 04/08/2022 CBC (INCL UDES DIFF/ PLT) hemoglobin 10.5 g/dL 11.7-1 5.5 low Not Available [facility] [address], [address], 04/08/2022 07:02:51 04/07/20 22 04/08/2022 CBC (INCL UDES DIFF/ PLT) hematocrit 35.4 % 35.0-4 5.0 normal Not Available [address], [address], 04/08/2022 07:02:51 04/07/20 22 04/08/2022 CBC (INCL UDES DIFF/ PLT) MCV 83.1 fL 80.0-1 00.0 normal Not Available [facility] [address], [address], 04/08/2022 07:02:51 04/07/20 22 04/08/2022 CBC (INCL UDES DIFF/ PLT) MCH 24.6 pg 27.0-3 3.0 low Not Available [facility] [address], [address], 04/08/2022 07:02:51 04/07/20 22 04/08/2022 CBC (INCL UDES DIFF/ PLT) MCHC 29.7 g/dL 32.0-3 6.0 low Not Available [address], [address], 04/08/2022 07:02:51 04/07/20 22 04/08/2022 CBC (INCL UDES DIFF/ PLT) RDW 15.4 % 11.0-1 5.0 high Not Available [address], [address], 04/08/2022 07:02:51 04/07/20 22 04/08/2022 CBC (INCL UDES DIFF/ PLT) platelet count 446 thous and/u L 140-40 0 high Not Available [facility] [address], [address], 04/08/2022 07:02:51 04/07/20 22 04/08/2022 CBC (INCL UDES DIFF/ PLT) MPV 10.4 fL 7.5-12 .5 normal Not Available [facility] [address], [address], 04/08/2022 07:02:51 04/07/20 22 04/08/2022 CBC (INCL UDES DIFF/ PLT) absolute neutrophils 4326 cells /uL 1500-7 800 normal Not Available [facility] [address], [address], 04/08/2022 07:02:51 04/07/20 22 04/08/2022 CBC (INCL UDES DIFF/ PLT) absolute lymphocytes 1613 cells /uL 850-39 00 normal Not Available [facility] [address], [address], 04/08/2022 07:02:51 04/07/20 22 04/08/2022 CBC (INCL UDES DIFF/ PLT) absolute monocytes 333 cells /uL 200-95 0 normal Not Available [address], [address], 04/08/2022 07:02:51 04/07/20 22 04/08/2022 CBC (INCL UDES DIFF/ PLT) absolute eosinophils 90 cells /uL 15-500 normal Not Available [facility] [address], [address], 04/08/2022 07:02:51 04/07/20 22 04/08/2022 CBC (INCL UDES DIFF/ PLT) absolute basophils 38 cells /uL 0-200 normal Not Available [facility] [address], [address], 04/08/2022 07:02:51 04/07/20 22 04/08/2022 CBC (INCL UDES DIFF/ PLT) neutrophils 67.6 % normal Not Available [facility] [address], [address], 04/08/2022 07:02:51 04/07/20 22 04/08/2022 CBC (INCL UDES DIFF/ PLT) lymphocytes 25.2 % normal Not Available [address], [address], 04/08/2022 07:02:51 04/07/20 22 04/08/2022 CBC (INCL UDES DIFF/ PLT) monocytes 5.2 % normal Not Available [address], [address], 04/08/2022 07:02:51 04/07/20 22 04/08/2022 CBC (INCL UDES DIFF/ PLT) eosinophils 1.4 % normal Not Available [address], [address], 04/08/2022 07:02:51 04/07/20 22 04/08/2022 CBC (INCL UDES DIFF/ PLT) basophils 0.6 % normal Not Available [facility] [address] [address] [place], [address], 04/08/2022 07:02:51 04/07/20 22 04/08/2022 HEMOG LOBIN A1C hemoglobin A1C 5.4 %_of_ total _HGB <5.7 normal For the purpo se of scree lucero for the prese nce of diabe sheldon: <5.7% Consi stent with the absen ce of diabe sheldon 5.7-6 .4% Consi stent with incre ased risk for diabe sheldon (pred iabet es) > or =6.5% Consi stent with diabe sheldon This assay resul t is consi stent with a decre ased risk of diabe sheldon. Curre ntly, no conse nsus exist s [facility] use of hemog lobin A1c for diagn osis of diabe sheldon in [place]. Accor ding to Ameri can Diabe sheldon Assoc iatio n (ADA) guide lines , hemog lobin A1c <7.0% repre sents optim al contr ol in non-p regna nt diabe tic patie nts. Diffe rent metri cs may apply to speci fic patie nt popul ation s. [facility] ards of Medic al Care in Diabe sheldon(A DA). Not Available [facility] [address] [address] [place], [address], 04/08/2022 07:02:49 04/07/20 22 04/08/2022 COMPR EHENS IVÁN METAB OLIC PANEL glucose 82 mg/dL 65-99 normal Fasti ng refer ence inter fernando Not Available [facility] [address] [place], [address], 04/08/2022 07:02:48 04/07/20 22 04/08/2022 COMPR EHENS IVÁN METAB OLIC PANEL urea nitrogen (BUN) 14 mg/dL 7-25 normal Not Available [address], [address], 04/08/2022 07:02:48 04/07/20 22 04/08/2022 COMPR EHENS IVÁN METAB OLIC PANEL creatinine 0.64 mg/dL 0.50-1 .10 normal Not Available [address], [address], 04/08/2022 07:02:48 04/07/20 22 04/08/2022 COMPR EHENS IVÁN METAB OLIC PANEL eGFR non-afr. stateless 112 mL/mi n/1.7 3m2 > or = 60 normal Not Available [address], [address], 04/08/2022 07:02:48 04/07/20 22 04/08/2022 COMPR EHENS IVÁN METAB OLIC PANEL eGFR 129 mL/mi n/1.7 3m2 > or = 60 normal Not Available [address], [address], 04/08/2022 07:02:48 04/07/20 22 04/08/2022 COMPR EHENS IVÁN METAB OLIC PANEL BUN/creatini ne ratio not applic able (calc ) 6-22 Not Available [address], [address], 04/08/2022 07:02:48 04/07/20 22 04/08/2022 COMPR EHENS IVÁN METAB OLIC PANEL sodium 138 mmol/ L 135-14 6 normal Not Available [address], [address], 04/08/2022 07:02:48 04/07/20 22 04/08/2022 COMPR EHENS IVÁN METAB OLIC PANEL potassium 4.5 mmol/ L 3.5-5. 3 normal Not Available [address], [address], 04/08/2022 07:02:48 04/07/20 22 04/08/2022 COMPR EHENS IVÁN METAB OLIC PANEL chloride 102 mmol/ L 98-110 normal Not Available [address], [address], 04/08/2022 07:02:48 04/07/20 22 04/08/2022 COMPR EHENS IVÁN METAB OLIC PANEL carbon dioxide 29 mmol/ L 20-32 normal Not Available [address], [address], 04/08/2022 07:02:48 04/07/20 22 04/08/2022 COMPR EHENS IVÁN METAB OLIC PANEL calcium 9.4 mg/dL 8.6-10 .2 normal Not Available [address], [address], 04/08/2022 07:02:48 04/07/20 22 04/08/2022 COMPR EHENS IVÁN METAB OLIC PANEL protein, total 7.3 g/dL 6.1-8. 1 normal Not Available [address], [address], 04/08/2022 07:02:48 04/07/20 22 04/08/2022 COMPR EHENS IVÁN METAB OLIC PANEL albumin 4.5 g/dL 3.6-5. 1 normal Not Available [address], [address], 04/08/2022 07:02:48 04/07/20 22 04/08/2022 COMPR EHENS IVÁN METAB OLIC PANEL globulin 2.8 g/dL_ (calc ) 1.9-3. 7 normal Not Available [address], [address], 04/08/2022 07:02:48 04/07/20 22 04/08/2022 COMPR EHENS IVÁN METAB OLIC PANEL albumin/glob ulin ratio 1.6 (calc ) 1.0-2. 5 normal Not Available [address], [address], 04/08/2022 07:02:48 04/07/20 22 04/08/2022 COMPR EHENS IVÁN METAB OLIC PANEL bilirubin, total 0.5 mg/dL 0.2-1. 2 normal Not Available [address], [address], 04/08/2022 07:02:48 04/07/20 22 04/08/2022 COMPR EHENS IVÁN METAB OLIC PANEL alkaline phosphatase 60 U/L 31-125 normal Not Available [facility] [address], [address], 04/08/2022 07:02:48 04/07/20 22 04/08/2022 COMPR EHENS IVÁN METAB OLIC PANEL AST 23 U/L 10-30 normal Not Available [address], [address], 04/08/2022 07:02:48 04/07/20 22 04/08/2022 COMPR EHENS IVÁN METAB OLIC PANEL ALT 19 U/L 6-29 normal Not Available [address], [address], 04/08/2022 07:02:48 04/07/20 22 04/08/2022 LIPID PANEL WITH RATIO S cholesterol, total 197 mg/dL <200 normal Not Available [address], [address], 04/08/2022 07:02:47 04/07/20 22 04/08/2022 LIPID PANEL WITH RATIO S HDL cholesterol 61 mg/dL > or = 50 normal Not Available [address], [address], 04/08/2022 07:02:47 04/07/20 22 04/08/2022 LIPID PANEL WITH RATIO S triglyceride s 126 mg/dL <150 normal Not Available [address], [address], 04/08/2022 07:02:47 04/07/20 22 04/08/2022 LIPID PANEL WITH RATIO S LDL-choleste rol 112 mg/dL _(alfa c) high Refer ence range : <100 Niharika able range <100 mg/dL for prima ry preve ntion ; <70 mg/dL for patie nts with CHD or diabe tic patie nts with > or = 2 CHD risk facto rs. LDL-C is now calcu lated using the Diana n-Hop kins calcu mary n, which is a valid ated novel metho d provi ding germania r accur acy than the Fried elias equat ion in the estim ation of LDL-C . Diana vieira SS et al. LISETTE. 2013; 310(1 9): 2061- 2068 (http ://ed ucati on.Qu estDi [employer]. com/f aq/FA Q164) Not Available [address], [address], 04/08/2022 07:02:47 04/07/2004/08/2022 LIPID PANEL WITH RATIO S chol/HDLC ratio 3.2 (calc ) <5.0 normal Not Available [address], [address], 04/08/2022 07:02:47 04/07/20 22 04/08/2022 LIPID PANEL WITH RATIO S LDL/HDL ratio 1.8 (calc ) Below avera ge Risk: <2.34 [place] Risk: 2.35- 4.12 Moder ate Risk: 4.13- 5.56 High Risk: >5.57 Not Available [facility] [address], [address], 04/08/2022 07:02:47 04/07/20 22 04/08/2022 LIPID PANEL WITH RATIO S non HDL cholesterol 136 mg/dL _(alfa c) <130 high For patie nts with diabe sheldon plus 1 major ASCVD risk facto r, treat ing to a non-H DL-C goal of <100 mg/dL (LDL- C of <70 mg/dL ) is dominga briseno optio n. Not Available [address], [address], 04/08/2022 07:02:47 04/07/20 22 04/08/2022 TSH+F REE T4 TSH 1.96 mIU/L normal Refer ence Range > or = 20 Years 0.40- 4.50 Pregn anriudh Range s First trime ster 0.26- 2.66 Secon d trime ster 0.55- 2.73 Third trime ster 0.43- 2.91 Not Available [address], [address], 04/08/2022 07:02:46 04/07/20 22 04/08/2022 TSH+F REE T4 T4, free 1.1 NG/dL 0.8-1. 8 normal Not Available [address], [address], 04/08/2022 07:02:46 05/21/20 23 05/22/2023 IRON, TIBC AND CHAO TIN PANEL iron, total 49 mcg/d L 40-190 normal Not Available [address], [address], 05/22/2023 08:02:22 05/21/2005/22/2023 IRON, TIBC AND CHAO TIN PANEL iron binding capacity 360 mcg/d L_(ca lc) 250-45 0 normal Not Available [address], [address], 05/22/2023 08:02:22 05/21/20 23 05/22/2023 IRON, TIBC AND CHAO TIN PANEL % saturation 14 %_(ca lc) 16-45 low Not Available [address], [address], 05/22/2023 08:02:22 05/21/20 23 05/22/2023 IRON, TIBC AND CHAO TIN PANEL ferritin 4 NG/mL 16-232 low Not Available [address], [address], 05/22/2023 08:02:22 05/21/20 23 05/22/2023 TSH+F REE T4 TSH 1.50 mIU/L normal Refer ence Range > or = 20 Years 0.40- 4.50 Pregn anirudh Range s First trime ster 0.26- 2.66 Secon d trime ster 0.55- 2.73 Third trime ster 0.43- 2.91 Not Available [address], [address], 05/22/2023 08:02:23 05/21/20 23 05/22/2023 TSH+F REE T4 T4, free 1.0 NG/dL 0.8-1. 8 normal Not Available [address], [address], 05/22/2023 08:02:23 05/21/20 23 05/22/2023 LIPID PANEL WITH RATIO S cholesterol, total 282 mg/dL <200 high Not Available [address], [address], 05/22/2023 08:02:24 05/21/20 23 05/22/2023 LIPID PANEL WITH RATIO S HDL cholesterol 67 mg/dL > or = 50 normal Not Available [address], [address], 05/22/2023 08:02:24 05/21/20 23 05/22/2023 LIPID PANEL WITH RATIO S triglyceride s 101 mg/dL <150 normal Not Available [facility]. [address] [address] [address], [place], [address], 05/22/2023 08:02:24 05/21/20 23 05/22/2023 LIPID PANEL WITH RATIO S LDL-choleste rol 193 mg/dL _(alfa c) high LDL-C level s > or = 190 mg/dL may indic ate famil ial hyper mirella stero lemia (FH). Clini alfa asses sment and measu remen t of blood lipid level s shoul d be consi dered for all first degre e relat arelis of patie nts with an FH diagn osis. LDL Mirella stero l (LDL- C) level s > or = 300 mg/dL may indic ate homoz ygous famil ial hyper mirella stero lemia (HoFH ). Untre ated, these extre betsy high LDL-C level s can resul t in charlene ture CV event s and morta lity. Patie nts shoul d be ident ified early and provi ded appro priat e inter venti ons to reduc e the cumul ative LDL-C burde n from . For quest ions about testi ng for famil ial hyper mirella stero lemia , pleas e call [facility] at 1.866 .GENE .INFO . Rubio angulo T, et al. J Natio nal Lipid Assoc iatio n Recom menda tions for Patie nt-Ce ntere d Manag ement of Dysli pidem ia: Part 1 Journ al of Clini alfa Lipid ology 2015; 9(2), 129-1 69. Leonel Houston. et al. (2014 ). Homoz ygous famil ial hyper mirella stero laemi a: new insig hts and jose nce for clini cians to impro ve detec tion and clini alfa manag ement . Europ aur[employer] Heart Journ al, 35(83 ), 3150- 5652. Refer ence range : <100 Niharika able range <100 mg/dL for prima ry preve ntion ; <70 mg/dL for patie nts with CHD or diabe tic patie nts with > or = 2 CHD risk facto rs. LDL-C is now calcu lated using the Diana n-Hop kins calcu gamalbenny n, which is a valid ated novel aparna daniel than the Fried elias equat ion in the estim ation of LDL-C . Diana vieira SS et al. LISETTE. 2013; 310(1 9): 2061- 2068 (http ://ed ucati on.Qu Madhu [employer]. com/f aq/FA Q164) Not Available [facility] [place] [address] [place], [address], 05/22/2023 08:02:24 05/21/2005/22/2023 LIPID PANEL WITH RATIO S chol/HDLC ratio 4.2 (calc ) <5.0 normal Not Available [facility] [place] [address] [place], [address], 05/22/2023 08:02:24 05/21/2005/22/2023 LIPID PANEL WITH RATIO S LDL/HDL ratio 2.9 (calc ) Below avera ge Risk: <2.34 [place] Risk: 2.35- 4.12 Moder ate Risk: 4.13- 5.56 High Risk: >5.57 Not Available [facility] [address] [address] [address] , [place], [address], 05/22/2023 08:02:24 05/21/2005/22/2023 LIPID PANEL WITH RATIO S non HDL cholesterol 215 mg/dL _(alfa c) <130 high For patie nts with diabe sheldon plus 1 major ASCVD risk facto r, treat ing to a non-H DL-C goal of <100 mg/dL (LDL- C of <70 mg/dL ) is dominga rivas n. Not Available [facility] [place] [address] [place], [address], 05/22/2023 08:02:24 05/21/2005/22/2023 COMPR EHENS IVÁN METAB OLIC PANEL glucose 87 mg/dL 65-99 normal Fasti ng refer ence inter fernando Not Available [place] [address] [place], [address], 05/22/2023 08:02:24 05/21/20 23 05/22/2023 COMPR EHENS IVÁN METAB OLIC PANEL urea nitrogen (BUN) 14 mg/dL 7-25 normal Not Available [place] [address] [place], [address], 05/22/2023 08:02:24 05/21/20 23 05/22/2023 COMPR EHENS IVÁN METAB OLIC PANEL creatinine 0.68 mg/dL 0.50-0 .99 normal Not Available [address], [address], 05/22/2023 08:02:24 05/21/20 23 05/22/2023 COMPR EHENS IVÁN METAB OLIC PANEL eGFR 112 mL/mi n/1.7 3m2 > or = 60 normal The eGFR is based on the CKD-E PI 2020 equat ion. To calcu late the new eGFR from a previ ous Creat inine or Cysta tin C resul t, go to https :[email or web address] hemphill s/ kdoqi /gfr% 5Fcal culat or Not Available [place] [address] [place], [address], 05/22/2023 08:02:24 05/21/20 23 05/22/2023 COMPR EHENS IVÁN METAB OLIC PANEL BUN/creatini ne ratio NOT APPLIC ABLE (calc ) 6-22 Not Available [place] [address] [place], [address], 05/22/2023 08:02:24 05/21/20 23 05/22/2023 COMPR EHENS IVÁN METAB OLIC PANEL sodium 138 mmol/ L 135-14 6 normal Not Available [place] [address] [place], [address], 05/22/2023 08:02:24 05/21/20 23 05/22/2023 COMPR EHENS IVÁN METAB OLIC PANEL potassium 4.4 mmol/ L 3.5-5. 3 normal Not Available [address], [address], 05/22/2023 08:02:24 05/21/20 23 05/22/2023 COMPR EHENS IVÁN METAB OLIC PANEL chloride 105 mmol/ L 98-110 normal Not Available [address], [address], 05/22/2023 08:02:24 05/21/20 23 05/22/2023 COMPR EHENS IVÁN METAB OLIC PANEL carbon dioxide 28 mmol/ L 20-32 normal Not Available [address], [address], 05/22/2023 08:02:24 05/21/20 23 05/22/2023 COMPR EHENS IVÁN METAB OLIC PANEL calcium 9.2 mg/dL 8.6-10 .2 normal Not Available [address], [address], 05/22/2023 08:02:24 05/21/20 23 05/22/2023 COMPR EHENS IVÁN METAB OLIC PANEL protein, total 6.9 g/dL 6.1-8. 1 normal Not Available [address], [address], 05/22/2023 08:02:24 05/21/20 23 05/22/2023 COMPR EHENS IVÁN METAB OLIC PANEL albumin 4.2 g/dL 3.6-5. 1 normal Not Available [address], [address], 05/22/2023 08:02:24 05/21/20 23 05/22/2023 COMPR EHENS IVÁN METAB OLIC PANEL globulin 2.7 g/dL_ (calc ) 1.9-3. 7 normal Not Available [address], [address], 05/22/2023 08:02:24 05/21/20 23 05/22/2023 COMPR EHENS IVÁN METAB OLIC PANEL albumin/glob ulin ratio 1.6 (calc ) 1.0-2. 5 normal Not Available [address], [address], 05/22/2023 08:02:24 05/21/20 23 05/22/2023 COMPR EHENS IVÁN METAB OLIC PANEL bilirubin, total 0.8 mg/dL 0.2-1. 2 normal Not Available [address], [address], 05/22/2023 08:02:24 05/21/20 23 05/22/2023 COMPR EHENS IVÁN METAB OLIC PANEL alkaline phosphatase 43 U/L 31-125 normal Not Available [address], [address], 05/22/2023 08:02:24 05/21/20 23 05/22/2023 COMPR EHENS IVÁN METAB OLIC PANEL AST 17 U/L 10-30 normal Not Available [address], [address], 05/22/2023 08:02:24 05/21/2005/22/2023 COMPR EHENS IVÁN METAB OLIC PANEL ALT 14 U/L 6-29 normal Not Available [address], [address], 05/22/2023 08:02:24 05/21/2005/22/2023 HEMOG LOBIN A1C hemoglobin A1C 4.8 %_of_ total _HGB <5.7 normal For the purpo se of scree lucero for the prese nce of diabe sheldon: <5.7% Consi stent with the absen ce of diabe sheldon 5.7-6 .4% Consi stent with incre ased risk for diabe sheldon (pred iabet es) > or =6.5% Consi stent with diabe sheldon This assay resul t is consi stent with a decre ased risk of diabe sheldon. Curre ntly, no conse nsus exist s [place] use of hemog lobin A1c for diagn osis of diabe sheldon in child [place]. Accor ding to Ameri can Diabe sheldon Assoc iatio n (ADA) guide lines , hemog lobin A1c <7.0% repre sents optim al contr ol in non-p regna nt diabe tic patie nts. Diffe rent metri cs may apply to speci fic patie nt popul ation s. [facility] ards of Medic al Care in Diabe sheldon(A DA). Not Available [address], [address], 05/22/2023 08:02:25 05/21/20 23 05/22/2023 CBC (INCL UDES DIFF/ PLT) white blood cell count 4.7 thous and/u L 3.8-10 .8 normal Not Available [address], [address], 05/22/2023 08:02:26 05/21/20 23 05/22/2023 CBC (INCL UDES DIFF/ PLT) red blood cell count 4.11 clarice on/uL 3.80-5 .10 normal Not Available [facility] [address], [address], 05/22/2023 08:02:26 05/21/20 23 05/22/2023 CBC (INCL UDES DIFF/ PLT) hemoglobin 11.5 g/dL 11.7-1 5.5 low Not Available [facility] [address], [address], 05/22/2023 08:02:26 05/21/20 23 05/22/2023 CBC (INCL UDES DIFF/ PLT) hematocrit 36.7 % 35.0-4 5.0 normal Not Available [address], [address], 05/22/2023 08:02:26 05/21/20 23 05/22/2023 CBC (INCL UDES DIFF/ PLT) MCV 89.3 fL 80.0-1 00.0 normal Not Available [address], [address], 05/22/2023 08:02:26 05/21/20 23 05/22/2023 CBC (INCL UDES DIFF/ PLT) MCH 28.0 pg 27.0-3 3.0 normal Not Available [address], [address], 05/22/2023 08:02:26 05/21/20 23 05/22/2023 CBC (INCL UDES DIFF/ PLT) MCHC 31.3 g/dL 32.0-3 6.0 low Not Available [address], [address], 05/22/2023 08:02:26 05/21/20 23 05/22/2023 CBC (INCL UDES DIFF/ PLT) RDW 13.6 % 11.0-1 5.0 normal Not Available [address], [address], 05/22/2023 08:02:26 05/21/20 23 05/22/2023 CBC (INCL UDES DIFF/ PLT) platelet count 352 thous and/u L 140-40 0 normal Not Available [address], [address], 05/22/2023 08:02:26 05/21/2005/22/2023 CBC (INCL UDES DIFF/ PLT) MPV 10.5 fL 7.5-12 .5 normal Not Available [address], [address], 05/22/2023 08:02:26 05/21/20 23 05/22/2023 CBC (INCL UDES DIFF/ PLT) absolute neutrophils 2886 cells /uL 1500-7 800 normal Not Available [address], [address], 05/22/2023 08:02:26 05/21/20 23 05/22/2023 CBC (INCL UDES DIFF/ PLT) absolute lymphocytes 1438 cells /uL 850-39 00 normal Not Available [address], [address], 05/22/2023 08:02:26 05/21/20 23 05/22/2023 CBC (INCL UDES DIFF/ PLT) absolute monocytes 296 cells /uL 200-95 0 normal Not Available [facility] [address], [address], 05/22/2023 08:02:26 05/21/20 23 05/22/2023 CBC (INCL UDES DIFF/ PLT) absolute eosinophils 52 cells /uL 15-500 normal Not Available [facility] [address], [address], 05/22/2023 08:02:26 05/21/20 23 05/22/2023 CBC (INCL UDES DIFF/ PLT) absolute basophils 28 cells /uL 0-200 normal Not Available [facility] [address], [address], 05/22/2023 08:02:26 05/21/20 23 05/22/2023 CBC (INCL UDES DIFF/ PLT) neutrophils 61.4 % normal Not Available [address], [address], 05/22/2023 08:02:26 05/21/20 23 05/22/2023 CBC (INCL UDES DIFF/ PLT) lymphocytes 30.6 % normal Not Available [facility] [address] [place], [address], 05/22/2023 08:02:26 05/21/20 23 05/22/2023 CBC (INCL UDES DIFF/ PLT) monocytes 6.3 % normal Not Available [facility] [address], [address], 05/22/2023 08:02:26 05/21/20 23 05/22/2023 CBC (INCL UDES DIFF/ PLT) eosinophils 1.1 % normal Not Available [facility] [address], [address], 05/22/2023 08:02:26 05/21/20 23 05/22/2023 CBC (INCL UDES DIFF/ PLT) basophils 0.6 % normal Not Available [address], [address], 05/22/2023 08:02:26 05/21/20 23 05/25/2023 SOLE C DISEA SE COMPR EHENS IVÁN PANEL interpretati on No serol ogica l evide nce of sole c disea se. tTG IgA may hanh lize in indiv idual s with sole c disea se who maint ain a glute n-asim e diet. Consi madeleine HLA DQ2 and DQ8 testi ng to rule out sole c disea se. Sole c disea se is extre betsy rare in the absen ce of DQ2 or DQ8. Not Available [address], [address], 05/25/2023 19:29:21 05/21/20 23 05/25/2023 SOLE C DISEA SE COMPR EHENS IVÁN PANEL tissue transglutami nase Ab, IgA <1.0 U/mL Value Inter preta tion ----- ----- ----- ---- <15.0 Antib afia not detec yesenia > or = 15.0 Antib afia detec yesenia Not Available [address], [place], [address], 05/25/2023 19:29:21 05/21/20 23 05/25/2023 SOLE C DISEA SE COMPR EHENS IVÁN PANEL immunoglobul in A 169 mg/dL 47-310 Not Available [facility] [address] [address], [place], [address], 05/25/2023 19:29:21 02/13/20 22 02/11/2022 XR, chest , 2 view No observ ation record ed. [id number] [facility] (Im[facility]) [address], [place], [address], 01/14/2023 08:25:35 Result Notes None recorded. Problems Name Problem SNOMED Code Status Onset Date Resolution Date Notes Provider Name and Address Organization Details Recorded Time Pleuritic pain 2836160 Active 2021 Not Available [facility] 3 08:21:49 Anemia 083749028 Active 2021 Not Available [facility] 3 08:21:49 Seasonal allergic rhinitis 334373310 Active 2021 Not Available [facility] 3 08:21:49 Sleep disorder 91397196 Active 2021 [facility] Available [facility] 3 08:21:49 Upper respiratory infection 68456361 Active 2021 Not Available [facility] 3 08:21:49 Snoring 47026072 Active 2021 Not Available [facility] 3 08:21:49 Fatigue 94000761 Active 2021 Not Available [facility] 3 08:21:49 Stomach ache 837359416 Active 2022 DUANE Rosas [address], [address], [place], [address] , [facility] 3 09:14:17 Iron deficiency 03338326 Active 2022 DUANE Rosas [address], [address], [place], [address] , [place] [facility] 3 17:30:33 Problem Notes None recorded. Medical Equipment None Reported. Allergies Allergen ID Allergen Name Allergen Category Reaction Reaction Severity Criticality Documentation Date Start Date Code Code System Note Provider Name and Address Organization Details Recorded Time sulfameth oxazole / trimethop rim medicatio n itching severe Not available 01/14/2023 78918 RxNorm Not Available [facility] 3 08:25:30 [address]74 latex environme nt,medica tion hives severe Not available 01/14/2023 68661 91 RxNorm Not Available [facility] 3 08:25:30 Medications Name Sig Start Date Stop Date Status Note LastModified by Organization Details LastModified Time azithromyci n 250 mg tablet TK 2 TS PO ON DAY 1, THEN TK 1 T PO D FOR 4 DAYS 03/27 completed Not Available Not Available Not Available tizanidine 4 mg tablet Take 1 tablet every 8 hours by oral route as needed. active Not Available Not Available No t Available amoxicillin 875 mg tablet 08/16 completed Not Available Not Available Not Available montelukast 10 mg tablet TK 1 T PO QD active Not Available Not Available No t Available cefuroxime axetil 500 mg tablet Take 1 tablet every 12 hours by oral route. active Not Available Not Available No t Available methylpredn isolone 4 mg tablets in a dose pack FOLLOW PACKAGE DIRECTION S 03/27 completed Not Available Not Available Not Available albuterol sulfate HFA 90 mcg/actuati on aerosol inhaler Inhale 2 puffs every 4-6 hours by inhalatio n route as needed. active Not Available Not Available No t Available cefdinir 300 mg capsule TAKE 1 CAPSULE BY MOUTH EVERY 12 HOURS active Not Available Not Available No t Available ParaGard T 380A 380 square mm intrauterin e device Take 1 device by intrauter ine route. 04/06 completed Not Available Not Available Not Available Loli 2018 active Not Available Not Available Not Avai lable Evening [place] 3 times daily 04/07 completed Not Available Not Available Not Available Loli-D 24 Hour once daily 08/26 completed Not Available Not Available Not Available ferrous gluconate 324 mg (38 mg iron) tablet Take 1 tablet every day by oral route. 2022 active Not Available Not Available Not Avai lable COVID-19 test specimen collection USE 1 KIT TODAY DIRECTED 03/27 completed Not Available Not Available Not Available [employer] COVID-19 Antigen Home Test kit 04/06 completed Not Available Not Available Not Available Vitals Date Recorded Body mass index (BMI) Body height Oxygen saturation Oxygen saturation in Arterial blood by Pulse oximetry Heart rate Respiratory rate Body temperature Body weight Systolic blood pressure Diastolic blood pressure Provider Name and Address Organization Details Last Updated DateTime 1 25.4 kg/m2 165.1 cm 98 % 98 % 76 /min 16 /min 98 [degF] 18954.9 1 g 108 mm[Hg] 68 mm[Hg] Not Available [facility] 3 08:19:37 Date Recorded Body mass index (BMI) Body height Oxygen saturation Oxygen saturation in Arterial blood by Pulse oximetry Heart rate Respiratory rate Body temperature Body weight Systolic blood pressure Diastolic blood pressure Provider Name and Address Organization Details Last Updated DateTime 2 24.6 kg/m2 165.1 cm 98 % 98 % 84 /min 16 /min 97.5 [degF] 10874.9 5 g 112 mm[Hg] 64 mm[Hg] Not Available [facility] 3 08:19:38 Date Recorded Systolic blood pressure Diastolic blood pressure Provider Name and Address Organization Details Last Updated DateTime 04/07/2023 110 mm[Hg] 80 mm[Hg] DUANE Rosas [address] [facility], [facility] [address], [place], [address], [employer] 04/07/2023 09:24:32 Date Recorded Body height Body temperature Body mass index (BMI) Body weight Respiratory rate Oxygen saturation Oxygen saturation in Arterial blood by Pulse oximetry Heart rate Systolic blood pressure Diastolic blood pressure Provider Name and Address Organization Details Last Updated DateTime 3 165.1 cm 96.4 [degF] 24.1 kg/m2 21433.8 9 g 16 /min 97 % 97 % 87 /min 120 mm[Hg] 80 mm[Hg] OSCAR [employer]en [email or web address] 3 09:05:27 Social History Question Answer Notes LastModified by Organizat ion Details LastModified Time Tobacco Smoking Status Never Smoker Not Available [facility] 01/14/2023 08:19:06 What Is Your Level Of Caffeine Consumption? Moderate [id number] Information not available 01/14/2023 How Much Tobacco Do You Chew? None [id number] Information not available 01/14/2023 In The 14 Days Before Symptom Onset, Have You Had Close Contact With A Laboratory-confirm ed COVID-19 While That Case Was Ill? No [id number] Information not available 01/14/2023 In The 14 Days Before Symptom Onset, Have You Had Close Contact With A Person Who Is Under Investigation For COVID-19 While That Person Was Ill? No [id number] Information not available 01/14/2023 What Type Of Diet Are You Following? REGULAR [id number] Information not available 01/14/2023 Which Illicit Or Recreational Drugs Have You Used? None [id number] Information not available 01/14/2023 Have There Been Any Changes To Your Family Or Social Situation? No [id number] Information not available 01/14/2023 Are There Any Guns Present In Your Home? Yes [id number] 1980 Information not available 01/14/2023 Do You Use Insect Repellent Routinely? No [id number] Information not available 01/14/2023 What Is Your Relationship Status? [id number] Information not available 01/14/2023 Do You Use Your Seat Belt Or Car Seat Routinely? Yes [id number] Information not available 01/14/2023 Do You Have Smoke And Carbon Monoxide Detectors In Your Home? Yes [id number] Information not available 01/14/2023 At What Age Did You Start Smoking Tobacco? 2 [id number] Information not available 01/14/2023 How Much Tobacco Do You Smoke? No [id number].[id number] Information not available 01/14/2023 Do You Use Sunscreen Routinely? Yes [id number] 5205 Information not available 01/14/2023 How Many Years Have You Smoked Tobacco? 0 [id number].[id number] 8135 Information not available 01/14/2023 Have You Recently Traveled Abroad? No [id number] Information not available 01/14/2023 Do You Have Any Dietary Restrictions? No MIGRATION.060696 3994 Information not available 01/14/2023 Sex: Female Functional Status Question Answer Note LastModified by Organizat ion Details LastModified Time Do you use any illicit or recreational drugs? No [id number] Information not available 01/14/2023 Do you or have you ever used any other forms of tobacco or nicotine? No [id number] 26 Information not available 01/14/2023 What is your level of alcohol consumption? None [id number] 26 Information not available 01/14/2023 What is your exercise level? None [id number] 26 Information not available 01/14/2023 Mental Status None recorded. Family History Relationship Description Onset Age of this Age Resolved Age Notes LastModified by Organization Details LastModified Time Mother Hypothyroidi sm [id number] Not available 01/14/2023 08:19:24 Father History of heart disorder [id number] Not available 01/14/2023 08:19:24 Medical History Condition Response RHEUMATIC FEVER N BLADDER PROBLEMS N OTHER # 1 N INFECTIOUS DISEASE N HEART ARRHYTHMIA N LUNG DISEASE/DISORDER N INSOMNIA N COPD N RADIATION / CHEMOTHERAPY N HIGH CHOLESTEROL / HYPERLIPIDEMIA N Other # 2 N HYPERTHYROIDISM N NEUROLOGICAL PROBLEMS N BLOOD DISEASES N SURGERY N EDEMA N HYPOTHYROIDISM N FEMALE PROBLEMS / INFECTIONS N DEPRESSION (INCLUDING POST ) N BOWEL PROBLEMS N HAVE YOU BEEN HOSPITALIZED OR SEEN IN [facility] ER IN THE PAST YEAR ? N MIGRAINES N STROKE/TIA N BENIGN PROSTATIC HYPERPLASIA N BREAST PROBLEMS N OBESITY N GERD/NAUSEA N ANEURYSM N OSTEOPOROSIS N URINARY/BLADDER/KIDNEY PROBLEMS Y ARTHRITIS N ENDOMETRIOSIS N USE OF BLOOD THINNERS N NO SIGNIFICANT PAST MEDICAL HISTORY N SKIN PROBLEMS N DIABETES, TYPE N HEARTBURN / REFLUX Y BLOOD CLOTS N HEPATITIS / LIVER DISEASE N ALZHEIMER'S DISEASE N HERPES N SEIZURES/EPILEPSY N HEADACHES/MIGRAINES Y VARICOSITIES N GI PROBLEMS N VASCULAR DISEASE N DIZZINESS N KIDNEY DISEASE N INFERTILITY N HEART DISEASE/HEART PROBLEMS N AIDS/HIV N CHEMOTHERAPY / RADIATION N HYPERTENSION N CANCER: SPECIFY N ANXIETY DISORDER N BLOOD TRANSFUSION N ANESTHESIA COMPLICATIONS N ANEMIA/BLOOD DISORDER N ATRIAL FIBRILLATION N AUTOIMMUNE DISEASE N TUBERCULOSIS N GLAUCOMA N Gynecological HistoryNo gynecological history recorded. Obstetrics History GPAL:G 0 P 0 0 0 0 Immunizations Vaccine Type Date Status Note Provider Nam e and Address Organization Details Recorded Time COVID-19, mRNA, LNP-S, PF, 100 mcg/0.5mL dose or 50 mcg/0.25mL dose 11/14/2021 completed Not Available [facility] 3 08:25:23 COVID-19, mRNA, LNP-S, PF, 100 mcg/0.5mL dose or 50 mcg/0.25mL dose 01/11/2021 completed Not Available [facility] 3 08:25:23 COVID-19, mRNA, LNP-S, PF, 100 mcg/0.5mL dose or 50 mcg/0.25mL dose 12/14/2020 completed Not Available [facility] 3 08:25:24 Influenza, split virus, quadrivalent, PF 08/26/2019 completed Not Available [facility] 3 08:25:24 Past Encounters Encounter ID Performer Location Encounter Start Date Encounter Closed Date Diagnosis/Indication Diagnosis SNOMED-CT Code Diagnosis ICD10 Code Diagnosis Note [id number] DUANE Rosas [facility] Internal [facility] [place] [address] [facility] [address] [place] [address] 02/08/2021 00:00:00 02/08/2021 09:59:11 [id number] Fredis Negro MD [facility] Internal [facility] [place] [address] [facility] [address] [place] [address] 03/28/2022 00:00:00 04/15/2022 11:32:13 [id number] DUANE Rosas [facility] Internal [facility] [place] [address] [facility] [address] [place] [address] 04/07/2023 09:00:43 04/07/2023 09:28:22 Adult health examination 479517938 Z00.01 well exam completed Fatigue 07151613 R53.83 pt does have continued fatigue screening TFTs and CMP due with other labs Anemia 842295554 D64.9 hx of anemia , iron studies are due Cholesterol screening 27 0006993 Z13.220 fasting lipids due. Diabetes m ellitus screening 883200669 Z13.1 diabetes screening is due Screening mammography 24 345165 Z12.31 mammogram is due Health Concerns Section Related Observation LastModified by Organization Detai ls LastModified Time None Recorded Concern Status LastModified by Organization Details LastModified Time None Recorded Advance Directives Directive None Recorded Payers Encounter Date Sequence Insurance Name Policy Number Policy Bronson Covered Member ID Bronson Member ID Guarantor Name 04/07/2023 1 [facility] [id number] Rick Kaye [id number] Candelaria Trevizoari Notes Date Note Type Note Provider Name and Address Organization Details Recorded Time 02/08/2021 text/html FatigueReported bypatient.Status:suba cute; worse Quality:generalized Severity:normal sleep patterns; normal exercise habits; normal activity; snoring noted per Duration:constant Timing:worse Context:symptoms do not improve when at home versus on the job Modifying Factors:no new stressors in life Associated Symptoms:no depression; no alcohol consumption; no anxiety;snoring;weigh t gain(8 pounds in over a year)Generic HPI TemplateReported bypatient.Notes:Pt is here for her wellness. No chronic problems or meds. She does c/o fatigue w/no change in sleep pattern. Hasnt had labs in over a year. Not Available [employer] 02/08/2021 09:59:11 03/28/2022 text/html Annual WellnessReported bypatient.Diet and Nutrition:healthy diet Fracture Risk:no history of fractures Physical Activity:good physical condition Additional Lifestyle Factors:no tobacco use Depression Risk:never feels sad, empty, or tearful; no loss of interest in activities Hearing:no loss of hearing Vision:worsening; has recently seen eye doctor. has new strength rx glasses Not Available [employer] 04/15/2022 11:32:13 04/07/2023 text/html Generic HPI TemplateReported bypatient.Notes:Pt is here for her wellness. No chronic prob/meds. Wellness DUANE Rosas [address] [place] [address], [facility] [address], [place], [address], [employer] 04/13/2023 00:04:54 OBGyn Episode No OBEpisode recorded.
== END 2025-04-21 08:30 | disposition home or self-care (01) ==
PROVIDERS: PCP Physician Assistant; Visit Provider Physician Assistant
DX: M54.12 Radiculopathy, cervical region (principal); Z12.31 Encounter for screening mammogram for malignant neoplasm of breast; M41.84 Other forms of scoliosis, thoracic region
CPT/HCPCS: 72040; 72070; 77063; 77067